=== PATIENT | female | born 1980 | race Caucasian/White ===

== ENCOUNTER 2019-05-02 06:41 | Day surgery (SDC) | payer BC ==
[~2019-05-02 06:41] MED LIST: Dextrose 5%-0.45% NaCl 1,000 ML IV SCH; Midazolam 1 MG/ML 2 ML SDV ONE; Sodium Chloride 0.9% 10 ML Syringe FLUSH PRN; fentaNYL 100 MCG/2 ML SDV ONE
[2019-05-02] MEDS ORDERED: Midazolam 1 MG/ML 2 ML SDV IV ONE ×10 (06:42→08:23)
[2019-05-02] MEDS ORDERED: fentaNYL 100 MCG/2 ML SDV IV ONE ×7 (06:42→08:17)
--- NOTE | 2019-05-02 14:48 | OR ---
DATE: 05/02/2019 PROCEDURE PERFORMED: Total colonoscopy. INSTRUMENT USED: [id number]-H190DL Olympus video colonoscope. PREMEDICATIONS: Fentanyl 200 mcg intravenous, Versed 6 mg intravenous. The procedure was done under pulse oximetry, BP recording, and quality assurance monitor final. INDICATION: The patient with longstanding abdominal pain and frequent bowel movements, unexplained and not responsive to medical measures, also intermittent rectal bleeding and some perianal soreness. Colonoscopic examination is done for detection of any polypoid lesions and removal, endoscopic hemostasis therapy if needed. DESCRIPTION OF PROCEDURE: Initial rectal exam showed some mild diffuse tenderness. Rigid anoscopy was unremarkable. The colonoscope was passed with relative ease up to the ileocecal area. Photographs were taken of the normal- appearing cecum identified by double-bulged ileocecal folds. No bleeding was noted from any of the visualized areas at the commencement of the examination. The bowel preparation was found to be adequate. Badger scale 2 in all the regions. No stricture, no vascular ectasia. No large isolated ulcerations seen. No evidence of diffuse inflammatory bowel disease in the form of friability, contact bleeding, or ulcerations. No polypoid tumor mass identified. The colon was found to be tortuous and redundant. The exam a bit prolonged. No bleeding was noted from any of the visualized areas at the completion of examination. IMPRESSION: Normal study. The patient tolerated the procedure well. [facility] /[id number]
--- NOTE | 2019-05-03 10:25 | LETTER ---
05/02/2019 Brook Saldaña NP [address] [address] RE: KASSY ORELLANA VIOLETTE : 1980 Dear Ms. Saldaña: Ms. Kassy Orellana had colonoscopic examination done this morning and she tolerated the procedure well. I herewith send a copy of the endoscopy note and photographs for your review. Thank you. Sincerely, [facility] /[id number]
== END 2019-05-02 10:05 | disposition home or self-care (01) ==
LOC: DL.ENDO 06:41
PROVIDERS: ATTEND Internal Medicine Gastroenterology
DX: R10.11 Right upper quadrant pain (principal); K62.5 Hemorrhage of anus and rectum; K62.89 Other specified diseases of anus and rectum; M50.30 Other cervical disc degeneration, unspecified cervical region; F41.1 Generalized anxiety disorder; F17.210 Nicotine dependence, cigarettes, uncomplicated; Z90.49 Acquired absence of other specified parts of digestive tract; Z88.5 Allergy status to narcotic agent; Z79.891 Long term (current) use of opiate analgesic; Z79.899 Other long term (current) drug therapy
CPT/HCPCS: 45378; J2250; J3010; J7042; G0121

== ENCOUNTER 2019-10-15 19:29 | Emergency (ER) | payer BC ==
[2019-10-15] MEDS: Sodium Chloride 0.9% 1,000 ML IV ONE ×2 (19:56→23:18)
--- NOTE | 2019-10-15 20:03 | EDM.PDOC ---
"ED HPI GENERAL MEDICAL PROBLEM - General Chief Complaint: Abdominal Pain Stated Complaint: STOMACH PAINS, DHIAREA, NOW ITS ALL BLOOD Time Seen by Provider: 10/15/19 19:40 Source of Information: Reports: Patient History Limitations: Reports: No Limitations - History of Present Illness INITIAL COMMENTS - FREE TEXT/NARRATIVE: ED with hx watery diarrhea stools for one week today, crampy diarrhea with blobs of blood, Estimates 15 stools today. Reported having to stop 4 times during one hour travel to facility. no vomiting . Hx intermittent diarrhea in past. Last colonoscopy in April . Abdominal Pain Score (Numeric/FACES): 8 - Related Data Allergies Allergy/AdvReac Type Severity Reaction Status Date / Time codeine Allergy Cannot Verified 05/02/19 07:19 Remember Home Meds: Home Meds ALPRAZolam 1 mg PO ASDIRECTED PRN 05/01/19 [History] Acetaminophen 1,000 mg PO Q6H PRN 05/01/19 [History] Ibuprofen 800 mg PO BID PRN 05/01/19 [History] oxyCODONE HCl/Acetaminophen [Endocet 7.5-325 mg Tablet] 1 tab PO BID 05/01/19 [ History] DULoxetine [Cymbalta] 60 mg PO DAILY 10/15/19 [History] Past Medical History HEENT History: Reports: Epistaxis Cardiovascular History: Reports: None Respiratory History: Reports: Bronchitis, Recurrent, Pneumonia, Recurrent Gastrointestinal History: Reports: Chronic Constipation, Chronic Diarrhea, Gastritis, GERD, Other (See Below) Other Gastrointestinal History: HX OF SPHINCTER OF ODDI DYSFUNCTION Genitourinary History: Reports: Renal Calculus 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 History: Reports: Musculoskeletal History: Reports: Arthritis, Back Pain, Chronic Neurological History: Reports: None Psychiatric History: Reports: Anxiety, Depression Endocrine/Metabolic History: Reports: None Hematologic History: Reports: Anemia, B12 Deficiency Immunologic History: Reports: None Oncologic (Cancer) History: Reports: None Dermatologic History: Reports: None - Infectious Disease History Infectious Disease History: Reports: Chicken Pox - Past Surgical History Head Surgeries/Procedures: Reports: None HEENT Surgical History: Reports: None Cardiovascular Surgical History: Reports: None Respiratory Surgical History: Reports: None GI Surgical History: Reports: Cholecystectomy Female Surgical History: Reports: Breast Biopsy, Tubal Ligation Musculoskeletal Surgical History: Reports: None Social & Family History - Caffeine Use Caffeine Use: Reports: Soda Caffeine Use Comment: 1 can daily ED ROS GENERAL - Review of Systems Review Of Systems: Comprehensive ROS is negative, except as noted in HPI. Constitutional: Reports: Malaise, Weakness HEENT: Reports: No Symptoms Respiratory: Reports: No Symptoms Cardiovascular: Reports: No Symptoms GI/Abdominal: Reports: Abdominal Pain, Bloody Stool, Mucous in Stool : Reports: No Symptoms Musculoskeletal: Reports: Neck Pain (chronic) Skin: Reports: No Symptoms Neurological: Reports: No Symptoms Psychiatric: Reports: No Symptoms ED EXAM, GI/ABD - Physical Exam Exam: See Below Exam Limited By: No Limitations General Appearance: Alert, Moderate Distress Eyes: Bilateral: EOMI Ears: Normal External Exam Nose: Normal Inspection Throat/Mouth: Normal Inspection, Normal Lips, Normal Teeth, Normal Voice Neck: Normal Inspection Respiratory/Chest: No Respiratory Distress, Lungs Clear, Normal Breath Sounds, Chest Non-Tender Cardiovascular: Normal Peripheral Pulses, Regular Rate, Rhythm, No Edema GI/Abdominal Exam: Soft, Tender (greater mid lower and left upper), Other ( crampy). No: Distended, Guarding, Rebound Back Exam: Full Range of Motion Extremities: Normal Inspection, Normal Range of Motion Neurological: Alert, Oriented, Normal Cognition Psychiatric: Normal Affect, Normal Mood Skin Exam: Warm, Dry, Intact, Normal Color, No Rash Course - Vital Signs Last Recorded V/S: Last Vital Signs Temp 99 F 10/15/19 23:06 Pulse 75 10/15/19 23:06 Resp 18 10/15/19 23:06 BP 144/80 H 10/15/19 23:06 Pulse Ox 97 10/15/19 23:06 - Orders/Labs/Meds Orders: Active Orders 24 hr Category Date Time Status CULTURE BLOOD [BC] Stat Lab 10/15/19 19:55 Results CULTURE BLOOD [BC] Stat Lab 10/15/19 20:21 Received Blood Culture x2 Reflex Set [OM.PC] Stat Oth 10/15/19 19:49 Ordered Labs: Laboratory Tests 10/15/19 10/15/19 10/15/19 Range/Units 19:55 19:55 19:55 WBC 13.5 H (5.0-10.0) 10^3/uL RBC 4.80 (4.2-5.4) 10^6/uL Hgb 15.8 (12.0-16.0) g/dL Hct 44.5 (37.0-47.0) % MCV 92.7 (80-100) fL MCH 32.9 (27.0-34.0) pg MCHC 35.5 H (33.0-35.0) g/dL Plt Count 269 (150-450) 10^3/uL Neut % (Auto) 78.4 H (42.2-75.2) % Lymph % (Auto) 12.1 L (20.5-50.1) % Braxton % (Auto) 7.8 (2-8) % Eos % (Auto) 1.5 (1.0-3.0) % Baso % (Auto) 0.2 (0.0-1.0) % Sodium 138 (136-145) mmol/L Potassium 3.2 L (3.5-5.1) mmol/L Chloride 102 (98-107) mmol/L Carbon Dioxide 24 (21-32) mmol/L Anion Gap 15.2 H (7-13) mEq/L BUN 15 (7-18) mg/dL Creatinine 0.98 (0.55-1.02) mg/dL Est Cr Clr Drug Dosing 76.21 mL/min Estimated GFR (MDRD) > 60 BUN/Creatinine Ratio 15.3 (No establ ref range) Glucose 120 H (74-99) mg/dL Lactic Acid 1.6 (0.4-2.0) mmol/L Calcium 9.2 (8.5-10.1) mg/dL Magnesium 1.5 L (1.8-2.4) mg/dL Total Bilirubin 0.8 (0.2-1.0) mg/dL AST 40 H (15-37) U/L ALT 86 H (14-59) U/L Alkaline Phosphatase 104 (46-116) U/L Total Protein 6.9 (6.4-8.2) g/dL Albumin 4.1 (3.4-5.0) g/dL Globulin 2.8 Albumin/Globulin Ratio 1.5 Amylase 27 (25-115) U/L Lipase 76 (73-393) U/L HCG, Qual Urine Color (YELLOW) Urine Appearance (CLEAR) Urine pH (5.0-9.0) Ur Specific [place] (1.005-1.030) Urine Protein (NEGATIVE) Urine Glucose (UA) (NEGATIVE) Urine Ketones (NEGATIVE) Urine Occult Blood (NEGATIVE) Urine Nitrite (NEGATIVE) Urine Bilirubin (NEGATIVE) Urine Urobilinogen (0.2-1.0) mg/dL Ur Leukocyte Esterase (NEGATIVE) Urine Opiates Screen (NEGATIVE) Ur Oxycodone Screen (NEGATIVE) Urine Methadone Screen (NEGATIVE) Ur Barbiturates Screen (NEGATIVE) U Tricyclic Antidepress (NEGATIVE) Ur Phencyclidine Scrn (NEGATIVE) Ur Amphetamine Screen (NEGATIVE) U Methamphetamines Scrn (NEGATIVE) Urine MDMA Screen (NEGATIVE) U Benzodiazepines Scrn (NEGATIVE) Urine Cocaine Screen (NEGATIVE) U Marijuana (THC) Screen (NEGATIVE) SARS-CoV-2 RNA (RT-PCR) (NEGATIVE) Blood Type Gel Antibody Screen 10/15/19 10/15/19 10/15/19 Range/Units 19:55 19:55 19:57 WBC (5.0-10.0) 10^3/uL RBC (4.2-5.4) 10^6/uL Hgb (12.0-16.0) g/dL Hct (37.0-47.0) % MCV (80-100) fL MCH (27.0-34.0) pg MCHC (33.0-35.0) g/dL Plt Count (150-450) 10^3/uL Neut % (Auto) (42.2-75.2) % Lymph % (Auto) (20.5-50.1) % Braxton % (Auto) (2-8) % Eos % (Auto) (1.0-3.0) % Baso % (Auto) (0.0-1.0) % Sodium (136-145) mmol/L Potassium (3.5-5.1) mmol/L Chloride (98-107) mmol/L Carbon Dioxide (21-32) mmol/L Anion Gap (7-13) mEq/L BUN (7-18) mg/dL Creatinine (0.55-1.02) mg/dL Est Cr Clr Drug Dosing mL/min Estimated GFR (MDRD) BUN/Creatinine Ratio (No establ ref range) Glucose (74-99) mg/dL Lactic Acid (0.4-2.0) mmol/L Calcium (8.5-10.1) mg/dL Magnesium (1.8-2.4) mg/dL Total Bilirubin (0.2-1.0) mg/dL AST (15-37) U/L ALT (14-59) U/L Alkaline Phosphatase (46-116) U/L Total Protein (6.4-8.2) g/dL Albumin (3.4-5.0) g/dL Globulin Albumin/Globulin Ratio Amylase (25-115) U/L Lipase (73-393) U/L HCG, Qual Negative Urine Color Yellow (YELLOW) Urine Appearance Clear (CLEAR) Urine pH 6.5 (5.0-9.0) Ur Specific [place] 1.025 (1.005-1.030) Urine Protein Negative (NEGATIVE) Urine Glucose (UA) Negative (NEGATIVE) Urine Ketones 80 H (NEGATIVE) Urine Occult Blood Negative (NEGATIVE) Urine Nitrite Negative (NEGATIVE) Urine Bilirubin Negative (NEGATIVE) Urine Urobilinogen 0.2 (0.2-1.0) mg/dL Ur Leukocyte Esterase Negative (NEGATIVE) Urine Opiates Screen (NEGATIVE) Ur Oxycodone Screen (NEGATIVE) Urine Methadone Screen (NEGATIVE) Ur Barbiturates Screen (NEGATIVE) U Tricyclic Antidepress (NEGATIVE) Ur Phencyclidine Scrn (NEGATIVE) Ur Amphetamine Screen (NEGATIVE) U Methamphetamines Scrn (NEGATIVE) Urine MDMA Screen (NEGATIVE) U Benzodiazepines Scrn (NEGATIVE) Urine Cocaine Screen (NEGATIVE) U Marijuana (THC) Screen (NEGATIVE) SARS-CoV-2 RNA (RT-PCR) (NEGATIVE) Blood Type A POSITIVE Gel Antibody Screen Negative 10/15/19 10/15/19 Range/Units 19:57 22:48 WBC (5.0-10.0) 10^3/uL RBC (4.2-5.4) 10^6/uL Hgb (12.0-16.0) g/dL Hct (37.0-47.0) % MCV (80-100) fL MCH (27.0-34.0) pg MCHC (33.0-35.0) g/dL Plt Count (150-450) 10^3/uL Neut % (Auto) (42.2-75.2) % Lymph % (Auto) (20.5-50.1) % Braxton % (Auto) (2-8) % Eos % (Auto) (1.0-3.0) % Baso % (Auto) (0.0-1.0) % Sodium (136-145) mmol/L Potassium (3.5-5.1) mmol/L Chloride (98-107) mmol/L Carbon Dioxide (21-32) mmol/L Anion Gap (7-13) mEq/L BUN (7-18) mg/dL Creatinine (0.55-1.02) mg/dL Est Cr Clr Drug Dosing mL/min Estimated GFR (MDRD) BUN/Creatinine Ratio (No establ ref range) Glucose (74-99) mg/dL Lactic Acid (0.4-2.0) mmol/L Calcium (8.5-10.1) mg/dL Magnesium (1.8-2.4) mg/dL Total Bilirubin (0.2-1.0) mg/dL AST (15-37) U/L ALT (14-59) U/L Alkaline Phosphatase (46-116) U/L Total Protein (6.4-8.2) g/dL Albumin (3.4-5.0) g/dL Globulin Albumin/Globulin Ratio Amylase (25-115) U/L Lipase (73-393) U/L HCG, Qual Urine Color (YELLOW) Urine Appearance (CLEAR) Urine pH (5.0-9.0) Ur Specific [place] (1.005-1.030) Urine Protein (NEGATIVE) Urine Glucose (UA) (NEGATIVE) Urine Ketones (NEGATIVE) Urine Occult Blood (NEGATIVE) Urine Nitrite (NEGATIVE) Urine Bilirubin (NEGATIVE) Urine Urobilinogen (0.2-1.0) mg/dL Ur Leukocyte Esterase (NEGATIVE) Urine Opiates Screen Negative (NEGATIVE) Ur Oxycodone Screen Negative (NEGATIVE) Urine Methadone Screen Negative (NEGATIVE) Ur Barbiturates Screen Negative (NEGATIVE) U Tricyclic Antidepress Negative (NEGATIVE) Ur Phencyclidine Scrn Negative (NEGATIVE) Ur Amphetamine Screen Negative (NEGATIVE) U Methamphetamines Scrn Negative (NEGATIVE) Urine MDMA Screen Negative (NEGATIVE) U Benzodiazepines Scrn Negative (NEGATIVE) Urine Cocaine Screen Negative (NEGATIVE) U Marijuana (THC) Screen Negative (NEGATIVE) SARS-CoV-2 RNA (RT-PCR) Negative (NEGATIVE) Blood Type Gel Antibody Screen Meds: Medications Discontinued Medications Generic Name Dose Route Start Last Admin Trade Name Freq PRN Reason Stop Dose Admin Acetaminophen 650 mg 10/15/19 22:23 10/15/19 22:27 Tylenol PO 10/15/19 22:24 650 mg NOW ONE Administration Hydromorphone HCl 1 mg 10/15/19 20:24 10/15/19 20:33 Dilaudid IVPUSH 10/15/19 20:25 1 mg ONETIME ONE Administration Hydromorphone HCl 0.5 mg 10/15/19 23:15 10/15/19 23:21 Dilaudid IVPUSH 10/15/19 23:16 0.5 mg ONETIME ONE Administration Sodium Chloride 1,000 mls @ 500 mls/hr 10/15/19 19:52 10/15/19 19:56 Normal Saline IV 10/15/19 21:51 500 mls/hr .BOLUS ONE Administration Potassium Chloride 10 meq/ 100 mls @ 100 mls/hr 10/15/19 21:13 10/15/19 21:19 Premix IV 10/15/19 22:12 100 mls/hr ONETIME ONE Administration Sodium Chloride 1,000 mls @ 250 mls/hr 10/15/19 23:14 10/15/19 23:18 Normal Saline IV 10/16/19 03:13 250 mls/hr .BOLUS ONE Administration Iopamidol 100 ml 10/15/19 20:36 10/15/19 20:56 Isovue-300 (61%) IVPUSH 10/15/19 20:37 100 ml ONETIME ONE Administration Ondansetron HCl 4 mg 10/15/19 20:24 10/15/19 20:32 Zofran IVPUSH 10/15/19 20:25 4 mg ONETIME ONE Administration Pantoprazole Sodium 80 mg 10/15/19 20:25 10/15/19 20:35 Protonix Iv IVPUSH 10/15/19 20:26 80 mg .BOLUS ONE Administration - Radiology Interpretation Free Text/Narrative:: [facility] Final Radiology Report Call: [phone] assistance Online chat: [email or web address] Name: QUINN CAREY Age: 39Years F Date: 10/15/2019 SSN: -- : 1980 Study: CT ABDOMEN/PELVIS W Requesting Physician: MACK MASSEY Images: [id number] Addl Studies: Provided Clinical History: Contrast: With Contrast Medium: [id number] Contrast Amount: 100 mL Contrast Method: rac Page 1 of 2 PROCEDURE INFORMATION: Exam: CT Abdomen And Pelvis With Contrast Exam date and time: 10/15/2019 9:13 PM Age: 39 years old Clinical indication: Other: Abd pain, bloody diarrhea, wbc 13,500 TECHNIQUE: Imaging protocol: Computed tomography of the abdomen and pelvis with intravenous contrast. Radiation optimization: All CT scans at this facility use at least one of these dose optimization techniques: automated exposure control; mA and/or kV adjustment per patient size (includes targeted exams where dose is matched to clinical indication); or iterative reconstruction. Contrast material: [id number]; Contrast volume: 100 ml; Contrast route: RAC; COMPARISON: No relevant prior studies available. FINDINGS: Lungs: Mild atelectasis in the visualized portions of the lung bases. A few subcentimeter scattered pneumatoceles in the right lung base. Liver: Small area of focal fatty infiltration in the liver adjacent to the falciform ligament. Gallbladder and bile ducts: Cholecystectomy. Prominence of the common duct and intrahepatic ducts, likely secondary to prior cholecystectomy. Pancreas: Unremarkable. Spleen: Unremarkable. Adrenals: Unremarkable. Kidneys and ureters: Subcentimeter low-attenuation lesion(s) in the left kidney , too small to characterize, likely simple cyst(s). No follow-up imaging is recommended. Stomach and bowel: Moderate wall thickening involving a moderately long segment of the descending and sigmoid colon (series 2, images 83-123). QUINN CAREY | Final Radiology Report CONFIDENTIALITY STATEMENT This report is intended only for use by the referring physician, and only in accordance with law. If you received this in error, call [phone]. Page 2 of 2 Appendix: Portions of the appendix are not well visualized as they abut bowel but the visualized portion of the appendix appears unremarkable. Intraperitoneal space: No free intraperitoneal fluid or gas. Vasculature: Unremarkable. Lymph nodes: No lymphadenopathy. Bladder: Partially decompressed urinary bladder. Reproductive: Two small metallic clips in the inferior pelvis, possibly related to prior tubal ligation. Suggest clinical correlation with surgical history. Bones/joints: Numerous subcentimeter bony sclerotic lesions throughout the visualized skeleton. Indeterminate 11 mm lytic lesion in the medial right iliac bone posteriorly ( series 2, image 99). Soft tissues: Unremarkable. IMPRESSION: 1. Moderate wall thickening involving a moderately long segment of the descending and sigmoid colon (series 2, images 83-123), most likely a nonspecific colitis, which may be infectious, inflammatory, or ischemic. Suggest follow-up colonoscopy once acute symptoms have resolved to exclude underlying malignancy, if clinically indicated. 2. Numerous subcentimeter bony sclerotic lesions throughout the visualized skeleton. In the absence of known malignancy, these likely represent bone islands. However, osseous metastases could also have a similar appearance. 3. Indeterminate 11 mm lytic lesion in the medial right iliac bone posteriorly ( series 2, image 99). Recommend further evaluation with bone scintigraphy, which can be performed on a non-emergent basis, if clinically indicated. COMMENTS: Consistent with the [employer]'s Incidental Findings Committee white paper (J Am Jian Radiol 2018): Any incidental cystic renal lesion classified in this report as too small to characterize or simple appearing is likely a benign cyst. No follow-up imaging is recommended for these lesions per consensus recommendations based on imaging criteria. Thank you for allowing us to - Re-Assessments/Exams Free Text/Narrative Re-Assessment/Exam: Pain and cramping improved following one time dose Dilaudid. TC Dr Foster [facility] - recommend tx to higher care due to potential risks if increased/ recurrent GI bleeding.. Dr Davy Askew accepting of patient. Tx via [facility]. COVID rapid testing prior to testing. Departure - Departure Time of Disposition: 23:12 Disposition: DC/Tfer to Acute Hospital 02 Condition: Good Clinical Impression: Colitis, Hypokalemia, Chronic neck pain Diarrhea Qualifiers: Diarrhea type: unspecified type Qualified Code(s): R19.7 - Diarrhea, unspecified - Discharge Information *PRESCRIPTION DRUG MONITORING PROGRAM REVIEWED*: Yes *COPY OF PRESCRIPTION DRUG MONITORING REPORT IN PATIENT ROSANA: Yes Forms: ED Department Discharge Sepsis Event Note - Evaluation Sepsis Screening Result: No Definite Risk - Focused Exam Vital Signs: Vital Signs Temp Pulse Resp BP Pulse Ox 10/15/19 23:06 99 F 75 18 144/80 H 97 10/15/19 22:19 100.1 F 105 H 20 104/25 L 98 10/15/19 21:25 100.1 F 100 16 146/83 H 95 10/15/19 20:13 76 20 151/97 H 99 10/15/19 19:36 98.2 F 103 H 20 149/90 H 100 Date Exam was Performed: 10/16/19 Time Exam was Performed: 04:21 - My Orders Last 24 Hours: My Active Orders 10/15/19 19:49 Blood Culture x2 Reflex Set [OM.PC] Stat 10/15/19 19:55 CULTURE BLOOD [BC] Stat 10/15/19 20:21 CULTURE BLOOD [BC] Stat - Assessment/Plan Last 24 Hours: My Active Orders 10/15/19 19:49 Blood Culture x2 Reflex Set [OM.PC] Stat 10/15/19 19:55 CULTURE BLOOD [BC] Stat 10/15/19 20:21 CULTURE BLOOD [BC] Stat"
[2019-10-15 20:25] LABS: ANION GAP 15.2 mEq/L (7-13); CHLORIDE,CL 102 mmol/L (98-107); SODIUM,NA 138 mmol/L (136-145)
[2019-10-15] MEDS: Ondansetron 4 MG/2 ML SDV IVPUSH ONE (20:32)
[2019-10-15] MEDS: HYDROmorphone 1 MG/ML Syringe IVPUSH ONE (20:33)
[2019-10-15] MEDS: Pantoprazole 40 MG Vial IVPUSH ONE (20:35)
[2019-10-15] MEDS: Iopamidol 612 MG/ML 100 ML Bottle IVPUSH ONE (20:56)
[2019-10-15] MEDS: Potassium Chloride 10 MEQ in Premix Bag 1 BAG IV ONE (21:19)
[2019-10-15] MEDS: Acetaminophen 325 MG Tab PO ONE (22:27)
[2019-10-15] MEDS: HYDROmorphone 0.5 MG/0.5 ML Syringe IVPUSH ONE (23:21)
== END 2019-10-15 23:40 ==
LOC: DL.ED 19:29
DX: K52.9 Noninfective gastroenteritis and colitis, unspecified (principal); E87.6 Hypokalemia; G89.29 Other chronic pain; M54.2 Cervicalgia; F32.9 Major depressive disorder, single episode, unspecified; Z88.5 Allergy status to narcotic agent; Z79.899 Other long term (current) drug therapy
CPT/HCPCS: 36415; 74177; 80053; 80305; 81003; 82150; 83605; 83690; 83735; 84703; 85025; 86850; 86900; 86901; 87040; 87635; 96361; 96365; 96375; 96376; 99285; A9270; C9113; J1170; J2405; J3480; J7030; Q9967; U0002

== ENCOUNTER 2019-11-13 05:53 | Day surgery (SDC) | payer BC ==
[2019-11-13] MEDS ORDERED: Midazolam 1 MG/ML 2 ML SDV IV ONE ×3 (05:54→07:04)
[2019-11-13] MEDS ORDERED: fentaNYL 100 MCG/2 ML SDV IV ONE ×3 (05:54→07:03)
--- NOTE | 2019-11-13 08:08 | OR ---
DATE: 11/13/2019 PROCEDURE: Esophagogastroduodenoscopy and multiple pinch biopsies. INSTRUMENT USED: [id number] Olympus video panendoscope. PREMEDICATIONS: No oral or topical anesthesia used. Fentanyl 100 mcg intravenous, Versed 2 mg intravenous. The procedure was done under pulse oximetry, BP recording, and bus monitor. INDICATION: The patient with persistent abdominal pain and diarrhea, unexplained and not responsive to medical measures. Esophagogastroduodenoscopy is performed for detection of any active erosive lesions, Cochran esophagus and/or malignancy also under consideration, H. pylori status to be determined, small bowel biopsies to be obtained for celiac disease, endoscopic hemostasis therapy if needed. PROCEDURE IN DETAIL: The scope was passed with ease. Adequate visualization of the esophagus was made from [id number] areas. No upper esophageal lesions identified. No distal esophageal stricture. No uphill or downhill esophageal varices. No Brooke-Ceja tear. No evidence of erosive esophagitis by [place] criteria. No esophageal polyp or tumor mass identified. Z-line was seen at around 40 cm distal to the oral verge, configuration consistent with grade 1 by ZAP classification. No proximal gastric varices noted. Gastric fundus examination by retroflexion showed no polypoid lesions. No gastric ulcer, malignant mass, or vascular ectasia identified. Duodenal bulb showed no ulcer. Visualized 2nd part of the duodenum was unremarkable. Multiple pinch biopsies, 4 in number, were taken from different areas of the 2nd part of the duodenum and tissues were also obtained from the duodenal bulb at 9 and 12 o'clock positions and sent for any histopathologic evidence of celiac disease. Multiple pinch biopsies were also taken from the gastric antrum and proximal body and sent for PyloriTek test for H. pylori and histopathology. No bleeding was noted from any of the visualized areas at the completion of examination. Photographs were taken of the duodenal bulb, gastric antrum, fundus, and distal esophagus. IMPRESSION: Normal study. The patient tolerated the procedure well. [facility] /[id number]
--- NOTE | 2019-11-13 12:05 | LETTER ---
11/13/2019 Brook Saldaña NP [address] [address] RE: AURELIOGENAROKin OAKES : 1980 Dear Ms. Saldaña: Ms. Kassy Orellana had esophagogastroduodenoscopy done this morning and she tolerated the procedure well. I herewith send a copy of the endoscopy note and photographs for your review. Thank you. Sincerely, [facility] /[id number]
== END 2019-11-13 09:20 | disposition home or self-care (01) ==
LOC: DL.ENDO 05:53
PROVIDERS: ATTEND Internal Medicine Gastroenterology
DX: K29.50 Unspecified chronic gastritis without bleeding (principal); I78.1 Nevus, non-neoplastic; F41.1 Generalized anxiety disorder; Z88.5 Allergy status to narcotic agent; Z90.49 Acquired absence of other specified parts of digestive tract; Z98.51 Tubal ligation status; M54.5 Low back pain; Z98.890 Other specified postprocedural states; Z72.0 Tobacco use
CPT/HCPCS: 43239; 87077; J2250; J3010; J7042